=== PATIENT | female | born 1995 | race Hispanic/Latino ===

== ENCOUNTER 2017-01-05 09:03 | Emergency (ER) | payer OTHER, MEDICAID ==
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
== END 2017-01-05 09:38 | disposition home or self-care (01) ==
LOC: ER 09:03
DX: Z04.1 Encounter for examination and observation following transport accident (principal); Z33.1 Pregnant state, incidental; V43.52XA Car driver injured in collision with other type car in traffic accident, initial encounter; Y92.488 Other paved roadways as the place of occurrence of the external cause
CPT/HCPCS: 99283

== ENCOUNTER 2017-03-30 18:27 | Emergency (ER) | payer MEDICAID, OTHER ==
--- NOTE | 2017-03-30 19:10 | ER NURSING DOCUMENTATION ---
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 Transition of care: Other [facility]. Notified ED Physician of patient's arrival and CC Dr. Spicer notified. 18:35 Method Of Arrival: Walk In cb 18:35 Acuity: RUTHY 4 cb Triage Assessment: 18:38 General: Appears in no apparent distress, well groomed, Behavior is cooperative. Pain: cb Complains of pain in lumbar area, left low back and right low back with radaition to hips Pain radiates to buttocks, hips. EENT: No deficits noted. Neuro: Level of Consciousness is awake, alert, Oriented to person, place, time. Cardiovascular: Pulses are 2+ in right radial artery. Respiratory: Airway is patent Trachea midline Respiratory effort is even, unlabored, Respiratory pattern is regular, symmetrical. GI: Reports tolerance of fluids, tolerance of food, Denies nausea. : Denies burning with urination. Derm: Denies rashes or wounds. Musculoskeletal: Circulation, motion, and sensation intact patient can wiggle toes and feel toes, denies any numbness or tingling in legs. Injury Description: low back pain. 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 Vitamin Oral 2. Acetaminophen Oral - PMHx: None; - PSHx: None; - Tetanus: unknown. - Ebola Screening: : Patient negative for fever greater than or equal to 101.5 degrees Fahrenheit, and additional compatible Ebola Virus Disease symptoms. Patient denies exposure to infectious person. Patient denies travel to an Ebola-affected area in the 21 days before illness onset. No symptoms or risks identified at this time. . - Immunization history: Flu Vaccine < 1 year. - Social history: Smoking status: Patient states former smoker of tobacco. Screenin:43 Infectious Disease Risk None. Abuse screen: Denies threats or abuse. Denies injuries cb from another. Nutritional screening: No deficits noted. Vital Signs: 18:37 BP 126 / 68; Pulse 70; Resp 16; Temp 98.6(TE); Pulse Ox 96% on R/A; Weight 89.81 kg; rh Height 5 ft. 3 in. (160.02 cm); Pain 6/10; 18:37 Body Mass Index 35.07 (89.81 kg, 160.02 cm) ED Course: 18:32 Patient arrived in ED. ds 18:32 Neal Hancock MD is Private Physician. ds 18:35 Tyra Winter RN is Primary Nurse. cb 18:36 Triage completed. cb 18:43 Valuables Remains with patient. cb 18:48 Deepak Spicer MD is Attending Physician. tl1 18:49 Neal Hancock MD is Referral Physician. tl1 Administered Medications: No medications were administered Outcome: 18:50 Discharge ordered by . tl1 19:09 Discharged to home ambulatory, with friend. rh 19:09 Condition: improved 19:09 Discharge Assessment: Patient awake, alert and oriented x 3. No cognitive and/or functional deficits noted. Patient verbalized understanding of disposition instructions. 19:09 Discharge instructions given to patient, friend, Instructed on discharge instructions, follow up and referral plans. medication usage, no driving heavy equipment, Demonstrated understanding of instructions, medications, Prescriptions given X 1. 19:09 Patient left the ED. 03/31 17:15 Discharge F/U Call: Unable to reach: no answer lp Signatures: Tyra Winter, Lakeisha Kessler RN, cb, RN RN lp Srot, Bella, Reg Reg ds Deepak Spicer MD MD tl1 Astrid Chavze
--- NOTE | 2017-03-30 19:10 | ER PHYSICIAN DOCUMENTATION ---
Physician Documentation [facility] Name:Jessica Huang Age:21 yrs Sex:Female :1995 Arrival Date:03/30/2017 Time:18:27 Bed6 Private MD:Neal Hancock DannielleDeepak Disposition: 03/30 23:56 Chart complete. tl1 Disposition: 03/30/17 18:50 Discharged to Home/Self Care. Impression: Myofascial Lumbar Strain. - Condition is Good. - Discharge Instructions: BACK SPRAIN/STRAIN. - Prescriptions for [place] 5- 325 mg Oral - take 1 tablet by ORAL route every 6 hours As needed; 12 tablet. - Medical Reconciliation form form. - Follow up: Neal Hancock MD; When: 4- 6 days; Reason: Recheck today's complaints, Continuance of care. - Problem is new. - Symptoms are unchanged. HPI: 18:41 This 21 yrs old Female presents to ER via Walk In with complaints of Back Pain.tl1 18:41 The patient presents with pain that is acute. tl1 18:42 She is 27 weeks pregannt. 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 she then noted pain in the mid lower lumbar area, and over the course of the day, she developed radiation of the pain symmetrically into both upper buttocks. The pain has progressed and she feels like she won't be able to return to work with this much pain. She deneis f/c/s, h/o malignancy, wt loss.. 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 Vitamin Oral 2. Acetaminophen Oral - PMHx: None; - PSHx: None; - Tetanus: unknown. - Ebola Screening: : Patient negative for fever greater than or equal to 101.5 degrees Fahrenheit, and additional compatible Ebola Virus Disease symptoms. Patient denies exposure to infectious person. Patient denies travel to an Ebola-affected area in the 21 days before illness onset. No symptoms or risks identified at this time. . - Immunization history: Flu Vaccine < 1 year. - Social history: Smoking status: Patient states former smoker of tobacco. ROS: 18:42 Back: Positive for pain with movement, of the lumbar area. tl1 18:42 : Negative for urinary frequency, flank pain, burning with urination, difficulty urinating, bladder incontinence, foul smelling urine. 18:42 Neuro: Negative for numbness, tingling, weakness. 18:42 All other systems are negative. Exam: 18:42 Constitutional: This is a well developed, well nourished patient who is awake, alert, tl1 and in no acute distress. 18:42 Head/face: Exam is negative for acute changes. 18:42 Neck: Exam negative for acute changes. 18:42 Cardiovascular: Rate: normal. 18:42 Respiratory: Respirations: normal. 18:42 Back: pain, that is moderate, of the lumbar area, normal spinal alignment noted, CVA tenderness, is absent, muscle spasm, is not present, Straight leg raises: of both lower extremities does not illicit pain. 18:42 Neuro: Orientation: is normal, Mentation: is normal, Memory: is normal, Cranial nerves: grossly normal, Cerebellar function: is grossly normal, Sensation: light touch sense is normal, Gait: not tested. Deep tendon reflexes are 2+ (normal) in the right patellar, right Achilles, left patellar and left Achilles. Vital Signs: 18:37 BP 126 / 68; Pulse 70; Resp 16; Temp 98.6(TE); Pulse Ox 96% on R/A; Weight 89.81 kg; rh Height 5 ft. 3 in. (160.02 cm); Pain 6/10; 18:37 Body Mass Index 35.07 (89.81 kg, 160.02 cm) rh MDM: 18:47 Patient medically screened. tl1 19:00 Data reviewed: vital signs, nurses notes, and as a result, I will discharge patient. tl1 Counseling: I had a detailed discussion with the patient and/or guardian regarding: the historical points, exam findings, and any diagnostic results supporting the discharge/admit diagnosis, the need for outpatient follow up, to return to the emergency department if symptoms worsen or persist or if there are any questions or concerns that arise at home. Special discussion: no work for 3 days.. Dispensed Medications: No medications were administered Signatures: Tyra Winter, EMILY RN Deepak Grijalva MD MD tl1 Astrid Chavez
== END 2017-03-30 19:10 | disposition home or self-care (01) ==
LOC: ER 18:27
DX: S39.012A Strain of muscle, fascia and tendon of lower back, initial encounter (principal); X50.0XXA Overexertion from strenuous movement or load, initial encounter; Y92.129 Unspecified place in nursing home as the place of occurrence of the external cause; Y93.F2 Activity, caregiving, lifting; Y99.0 Civilian activity done for income or pay; Z33.1 Pregnant state, incidental
CPT/HCPCS: 99282